=== PATIENT | female | born 1985 | race Caucasian/White ===

== ENCOUNTER 2024-04-26 15:54 | Emergency (ER) | payer OTHER, SELFPAY ==
[2024-04-26 16:09] VITALS: BP 130/83; PULSE 73; RESP 18; TEMP 36.8; O2SAT 99
--- NOTE | 2024-04-26 16:23 | ED.URI ---
HPI - URI/Sore Throat General Chief Complaint: Upper Respiratory Infection Stated Complaint: chest congestion Time Seen by Provider: 04/26/24 16:23 Source: patient Mode of arrival: ambulatory Limitations: no limitations History of Present Illness HPI Narrative: 39-year-old female presents stating she has been sick for 2 weeks. Reports symptoms started with sinus headaches , sinus pressure and nasal congestion. Had the symptoms for approximately 4-5 days. Since then has had Chest congestion, productive cough that is getting progressively worse. reports some shortness breath with exertion and feels like she cannot take a full breath. Afebrile. Course with x2 days. All systems reviewed and negative except as noted above. Related Data Allergies Allergy/AdvReac Type Severity Reaction Status Date / Time adhesive tape Allergy Rash Verified 04/26/24 16:20 ciprofloxacin [From Cipro] Allergy Rash Verified 04/26/24 16:20 hydrocodone Allergy Rash Verified 04/26/24 16:20 Review of Systems Review of Systems: CONSTITUTIONAL: Denies fever, chills, or sweats. EYES: Denies visual changes, redness, or discharge. ENT: reports rhinorrhea, congestion, sinus pressure, sinus congestion. Denies sore throat or otalgia. CARDIOVASCULAR: Denies chest pain, palpitations, or edema. RESPIRATORY: Reports cough and dyspnea with exertion. GASTROINTESTINAL: Denies abdominal pain, nausea, vomiting, or diarrhea. GENITOURINARY: Denies dysuria or hematuria. SKIN: Denies rash or itching. MUSCULOSKELETAL: Denies back pain, joint pain, or myalgia. NEUROLOGIC: Denies headache, numbness, or weakness. PSYCHIATRIC: Denies anxiety or depression. All other systems reviewed are negative, except as documented in HPI. PMFSH Comments At time of signature, agree with nursing past medical, surgical, social and family history. There is no relevant family history pertinent to the presenting complaint. Exam Narrative: GENERAL: This is a well-nourished, well-developed patient, in no apparent distress. HEAD: normocephalic, atraumatic. EYES: PERRL. Sclera clear/white. Vision is grossly intact. EARS: External ears normal, auditory canals clear and without drainage, fluid bilateral TMs without perforation or erythema. Hearing grossly intact. NOSE: External nose normal with Clear nasal drainage, erythema to bilateral nares THROAT: Mucous membranes moist, clear postnasal drainage NECK: Neck supple, non-tender without lymphadenopathy, masses or thyromegaly. CARDIOVASCULAR: Regular rate and rhythm without murmurs, gallops, or rubs. RESPIRATORY: decreased to right lower lung field. Breath sounds equal bilaterally. No wheezes, rales, or rhonchi. SKIN: warm, Dry, intact with no suspicious lesions or rash, good texture and turgor. NEURO: awake, alert, and oriented to person, place and time. There were no obvious focal neurologic abnormalities. EXTREMITIES: No joint tenderness, effusion, or edema noted. Course Course Level of Care: Express Care Visit Vital Signs Vital signs: Vital Signs Temperature 36.8 C 04/26/24 16:09 Pulse Rate 73 04/26/24 16:09 Respiratory Rate 18 04/26/24 16:09 Blood Pressure 130/83 04/26/24 16:09 Pulse Oximetry 99 04/26/24 16:09 Oxygen Delivery Room Air 04/26/24 16:09 Temperature 36.8 C 04/26/24 16:09 Pulse Rate 73 04/26/24 16:09 Respiratory Rate 18 04/26/24 16:09 Blood Pressure 130/83 04/26/24 16:09 Pulse Oximetry 99 04/26/24 16:09 Oxygen Delivery Room Air 04/26/24 16:09 Reviewed MDM - URI/Sore Throat MDM Narrative Medical decision making narrative: due to recent mycoplasma pneumonia outbreak patient's symptoms ago since our concerning for pneumonia. Will prescribe antibiotic today. Patient is nontoxic, O2 saturation 99% room air. Patient is aware of diagnosis, understands and agrees to treatment plan. Anticipatory guidance given. Patient agrees to follow-up as directed and is aware of reasons to seek care at the emergency department. Portions of this record may have been created with voice recognition software Discharge Plan Discharge Clinical Impression: Pneumonia Patient Disposition: Home, Self-Care Condition: Stable Instructions: Antibiotic Form, Pneumonia (ED) Additional Instructions: Take medications as prescribed. Continue taking [id number] Mucinex as directed on packaging. Drink at least 64 oz of water a day. Drink hot tea with honey to soothe throat and treat cough. Follow-up your primary care physician if symptoms are not improving. Prescriptions: New doxycycline hyclate 100 mg capsule 100 mg PO BID 7 Days Qty: 14 0RF benzonatate 200 mg capsule 200 mg PO TID PRN (Reason: cough) Qty: 20 0RF methylprednisolone [Medrol ([place])] 4 mg tablets,dose pack See Rx Instructions PO .COMPLEX Qty: 21 0RF Rx Instructions: orally per package directions Follow-up/Referrals: PHYSICIAN,[employer] [Primary Care Provider] - Time of Disposition: 16:34
== END 2024-04-26 16:41 | disposition home or self-care (01) ==
PROVIDERS: Emergency Provider Nurse Practitioner Family
DX: J18.9 Pneumonia, unspecified organism (principal)
CPT/HCPCS: 99213; G0463